=== PATIENT | female | born 1990 | race Caucasian/White ===

== ENCOUNTER → 2020-11-27 10:58 | Outpatient (CLI) | payer BC, SELFPAY ==
--- NOTE | ~2020-11-27 | XR_ITS ---
XR lumbar spine 2-3V DATE: 11/27/2020 11:20 INDICATION: Right hip joint pain TECHNIQUE: Standing AP, lateral and coned lateral lumbosacral views COMPARISON: None FINDINGS: No fracture or bone destruction. The included lower thoracic and lumbar pedicles are intact . Lumbar and lumbosacral interspaces are well preserved. The completely joints are normal. IMPRESSION: Negative Reviewed, dictated and finalized at location A. IMPRESSION: Negative
--- NOTE | ~2020-11-27 | XR_ITS ---
XR hip RT min 2V DATE: 11/27/2020 11:21 INDICATION: Right hip pain TECHNIQUE: AP and lateral views of right hip COMPARISON: None FINDINGS: No fracture or dislocation, avascular necrosis or bone destruction of the right hip. Hip brandon int space is well preserved. The pubic symphysis and right sacroiliac and included portions of the le ft sacroiliac joint are normal. IMPRESSION: Negative right hip Reviewed, dictated and finalized at location A. IMPRESSION: Negative right hip
== END ==
PROVIDERS: PCP Family Medicine; Visit Provider Family Medicine
DX: M25.551 Pain in right hip (principal); M54.5 Low back pain
CPT/HCPCS: 72100; 73502

== ENCOUNTER → 2021-09-01 09:59 | Outpatient (CLI) | payer BC, SELFPAY ==
--- NOTE | ~2021-09-01 | US_ITS ---
EXAMINATION: US transvaginal DATE: 09/01/2021 10:32 INDICATION: Irregular periods TECHNIQUE: Multiple endovaginal sonographic images of the pelvis were obtained. COMPARISON: None. FINDINGS: The uterus measures 6.6 x 2.6 x 3.9 cm. The endometrial complex measures 4 mm. The right ov [place] measures 2.6 x 2.6 x 2.1 cm. The left ovary measures 2.7 x 1.7 x 1.8 cm. There is normal vascular flow in the ovaries. There is no free fluid in the pelvis. IMPRESSION: 1. No sonographic correlate for the patient's symptoms. Reviewed, dictated and finalized at location B.
--- NOTE | ~2021-09-01 | US_ITS ---
EXAMINATION: US thyroid EXAM DATE: 09/01/2021 10:34 INDICATION: nontoxic goiter, irregular periods. TECHNIQUE: Multiple grayscale and Doppler images of the thyroid were obtained (by a technologist who performed the scan) and subsequently reviewed. Individual nodules and recommendations may be reporte d in accordance with TI-RADS system as designated by the 2017 ACR White Paper TI-RADS committee. The re is no prior study for comparison. FINDINGS: The right there are lobe measures 5.0 x 1.5 x 1.6 cm, the left measuring 4.2 x 1.1 x 1.5 cm. Relative ly homogeneous thyroid echogenicity. No focal nodule identified. IMPRESSION: 1. Unremarkable thyroid ultrasound exam. Reviewed, dictated and finalized at location G.
== END ==
DX: E04.9 Nontoxic goiter, unspecified (principal); N92.6 Irregular menstruation, unspecified
CPT/HCPCS: 76536; 76830

== ENCOUNTER 2023-09-03 11:42 | Outpatient (CLI) | payer SELFPAY ==
[2023-09-03 14:32] LABS: Beta HCG Quantitative < 2.39 mIU/ML
== END 2023-09-03 11:43 | disposition home or self-care (01) ==
PROVIDERS: Visit Provider Nurse Practitioner Obstetrics & Gynecology
DX: N92.5 Other specified irregular menstruation (principal)
CPT/HCPCS: 36415; 84702